=== PATIENT | male | born 1985 | race Caucasian/White ===

== ENCOUNTER 2020-04-14 14:12 | Outpatient (CLI) | payer BC, SELFPAY ==
--- NOTE | 2020-04-20 15:00 | SLEEP_ITS ---
Home Sleep Study DATE OF STUDY: 04/14/2020 ORDERING PHYSICIAN: Watson Ayon M.D. REASON FOR THE STUDY: Hypersomnia. HISTORY: This patient is a 35-year-old man, 5 feet 10 inches tall, weighing 200 pounds with a body mass index of 28.7. He has a history of palpitations. He does not awaken from sleep feeling short of breath or awaken at night with heartburn. He frequently snores. Rarely is loud enough that others complain about it. He occasionally has trouble sleeping with a cold, does not gasp for breath at night, does not have breathing problems at night witnessed by others or sweat excessively at night. He does not notice his heart pounding irregularly during the night. He occasionally falls asleep during the day, never involuntarily, or while driving or with physical effort. He does not have loss of muscle tone with strong emotion. He denies daytime difficulties due to excessive sleepiness. He does not feel paralyzed on waking or falling asleep. He rarely has vivid dreamlike scenes upon awakening or falling asleep, does not feel afraid to go to sleep or have nightmares. He rarely remembers his dreams. Rarely has racing thoughts, rarely feels sad or depressed. He frequently has anxiety. Rarely has muscular tension. He does not notice parts of his body jerking and he does not kick at night. He does not have crawly achy feelings in his legs or leg pain at night. He does not have morning jaw pain rarely grinds his teeth at night. He is not bothered by pain during the day and is not awakened by pain at night. He frequently wakes up feeling stiff in the morning with sore achy muscles, rarely wakes up with pain in the neck and spine. He has palpitations and concentration difficulties. Bedtime is 11:00 p.m., falling asleep within 5 minutes or less, typically waking 3-5 times at night for a few minutes to reposition himself. He wakes in the morning at 07:00 a.m. On the weekends, he goes to bed at 02:00 a.m. and awakens at 10:00 a.m. His sleep is sometimes disturbed by the dog. He does not take naps. A short nap is not refreshing. He is drowsy in the morning for 1 hour. MEDICAL COMORBIDITIES: Hypertension, anxiety, deviated septum, cannot breathe easily from both nostrils. MEDICATIONS: 1. Bupropion XL 150 mg a day for anxiety. 2. Lisinopril 5 mg a day. 3. Metoprolol 50 mg a day. HABITS: Quit tobacco 8 years ago. Two caffeine beverages a day and alcohol not daily. DESCRIPTION OF THE STUDY: On the Jerome Sleepiness Scale, the score is 8. This was conducted as an unattended type 3 portable home sleep test using 4 channel monitoring including respiratory effort channel, snoring channel, oxygen saturation channel, and heart rate channel. This study was scored using [facility] guidelines. The duration of the study was 6 hours 37 minutes. The apnea-hypopnea index is 5.3. Oxygen desaturation index is 3. Average saturation 94%. Lowest desaturation 90%. He had 18 apneas, majority 67% or 12 apneas were obstructive, 33% or 6 apneas were central with 17 hypopneas, 100 snoring events in 19 desaturations. No time spent below 88%. Heart rate ranged from 45 to 95. IMPRESSION: This home sleep test shows evidence of mild obstructive sleep apnea syndrome G47.33 with an AHI of 5.3. The lowest saturation was 90%, which is the low end of normal. Average saturation was 94%. Low end of normal. Majority of his apneas were obstructive. He does have snoring, but no sustained desaturation. Given his comorbidity of hypertension, he does meet criteria for treatment of his sleep apnea with auto PAP pressures between 5 and 15 cm, heated humidifier and appropriate interface. Close clinical followup is recommended. If he does not respond to treatment, consider in-lab ti
== END 2020-04-14 14:13 | disposition home or self-care (01) ==
LOC: ANHCSM 14:12
PROVIDERS: PCP Family Medicine; Visit Provider Internal Medicine Cardiovascular Disease
DX: G47.33 Obstructive sleep apnea (adult) (pediatric) (principal)
CPT/HCPCS: 95806

== ENCOUNTER 2022-07-19 10:15 | Outpatient (CLI) | payer BC, SELFPAY ==
--- NOTE | ~2022-07-19 | US_ITS ---
US retroperitoneal comp 07/19/2022 10:39 Procedure: Realtime transabdominal ultrasound of the kidneys and bladder. Indication: Recent left renal stone which has passed. No current pain. Comparison: CT dated 11/26/2012 Findings: Renal echotexture is normal bilaterally without hydronephrosis, contour deforming mass or r enal calculus. The right kidney measures 9.9 cm and left kidney measures 10.5 cm. Bladder within nor mal limits. Impression: 1: Unremarkable renal ultrasound. No stones, masses or hydronephrosis. Reviewed, dictated and finalized at location A. [facility] PHYSICAL THERAPIST Impression: 1: Unremarkable renal ultrasound. No stones, masses or hydronephrosis.
== END 2022-07-19 10:16 ==
LOC: MICIMG 10:17
PROVIDERS: PCP Family Medicine; Visit Provider Urology
DX: N20.1 Calculus of ureter (principal)
CPT/HCPCS: 76770

== ENCOUNTER 2024-04-10 08:58 | Outpatient (CLI) | payer BC, SELFPAY ==
--- NOTE | ~2024-04-10 | XR_ITS ---
XR cervical spine 4-5V Ordering provider: Alvaro Christina MD History: . No injury left side upper neck pain for 4 months . Comparison: None. FINDINGS: VERTEBRAL BODIES: Normal height and alignment. No visible fracture or subluxation. The dens is intact . DISK SPACES: Well maintained. PARASPINOUS SOFT TISSUES: No prevertebral soft tissue swelling. IMPRESSION: No acute osseous abnormality cervical spine. Reviewed, dictated and finalized at location A.
== END 2024-04-10 08:59 ==
LOC: MICIMG 08:59
PROVIDERS: PCP Family Medicine; Visit Provider Family Medicine
DX: M54.2 Cervicalgia (principal)
CPT/HCPCS: 72050